=== PATIENT | female | born 1995 | race Caucasian/White ===

== ENCOUNTER 2018-04-20 18:44 | Emergency (ER) | payer OTHER, BC ==
[~2018-04-20] VITALS: Ht 165.1 cm; Wt 54.4 kg
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
[2018-04-20 21:40] VITALS: BP 142/87
== END 2018-04-20 21:40 | disposition short-term general hospital (02) ==
LOC: ER 18:46
DX: S06.5X0A Traumatic subdural hemorrhage without loss of consciousness, initial encounter (principal); R40.2142 Coma scale, eyes open, spontaneous, at arrival to emergency department; R40.2252 Coma scale, best verbal response, oriented, at arrival to emergency department; R40.2362 Coma scale, best motor response, obeys commands, at arrival to emergency department; V49.50XA Passenger injured in collision with unspecified motor vehicles in traffic accident, initial encounter
CPT/HCPCS: 70450